=== PATIENT | female | born 1995 | race Caucasian/White ===

== ENCOUNTER 2016-07-31 08:13 | Emergency (ER) | payer SELFPAY ==
[~2016-07-31] VITALS: Ht 162.6 cm; Wt 63.0 kg
[2016-07-31] MEDS ORDERED: IV NORMAL SALINE 1,000ML 1,000 ML IV SCH (08:30)
[2016-07-31] MEDS ORDERED: fentaNYL PF 100 MCG/2 ML VIAL IV PRN (08:30)
--- NOTE | 2016-07-31 08:45 | PHYS DOC ---
Past History Past Medical History: Depression Past Surgical History: No Surgical History Alcohol Use: None Drug Use: None Adult General Chief Complaint Chief Complaint: ABSCESS HPI HPI Patient is a 20 year old female who presents with complaint of rectal pain. Patient states that her symptoms started 2 days ago and have rapidly worsened during that time. Patient states that she has developed a painful area of swelling near her rectum. Patient states that this area is tender to touch and patient is also having pain with bowel movement. Patient denies any fevers. Patient states that she has had history of MRSA abscess of the groin. Patient states that she is currently on her menstrual period. Patient rates the pain on my history taking as 8 out of 10. Patient not currently on any medications. Patient states that she has not taken any medications to help with her symptoms at this time. Review of Systems Review of Systems Constitutional: Denies fever or chills [] Eyes: Denies change in visual acuity, redness, or eye pain [] HENT: Denies nasal congestion or sore throat [] Respiratory: Denies cough or shortness of breath [] Cardiovascular: Denies chest pain or edema [] GI: Rectal pain and swelling, denies abdominal pain, nausea, vomiting, bloody stools or diarrhea [] : Denies dysuria or hematuria [] Musculoskeletal: Denies back pain or joint pain [] Integument: Denies rash or skin lesions [] Neurologic: Denies headache, focal weakness or sensory changes [] Current Medications Current Medications Current Medications Medications (Trade) Dose Ordered Sig/Mehreen Start Time Stop Time Status Last Admin Dose Admin Fentanyl Citrate (Fentanyl 2ml Vial) 50 mcg PRN Q15MIN PRN 07/31/16 08:30 08/01/16 08:29 UNV Ondansetron HCl (Zofran) 4 mg 1X ONCE 07/31/16 08:30 07/31/16 08:31 UNV Sodium Chloride 1,000 ml @ 1,000 mls/hr Q1H 07/31/16 08:30 07/31/16 09:29 UNV Allergies Allergies Allergies Coded Allergies Type Severity Reaction Last Updated Verified No Known Drug Allergies 08/22/15 No Physical Exam Physical Exam Constitutional: Alert, afebrile, appears in moderate discomfort. [] HENT: Normocephalic, atraumatic, bilateral external ears normal, oropharynx moist, no oral exudates, nose normal. [] Cardiovascular: Tachycardia, regular rhythm, no murmur [] Lungs & Thorax: Bilateral breath sounds clear to auscultation [] Abdomen: Bowel sounds normal, soft, no tenderness, no masses, no pulsatile masses. Rectal: 3 cm swollen, tender, fluctuant lesion adjacent to left anterior portion of the anus, tenderness with rectal exam, no gross blood or purulent discharge. [] Skin: Warm, dry, no erythema, no rash. [] Extremities: No tenderness, no cyanosis, no clubbing, ROM intact, no edema. [] Neurologic: Alert and oriented X 3, normal motor function, normal sensory function, no focal deficits noted. [] EKG EKG Not performed [] Radiology/Procedures Radiology/Procedures Not performed [] Course & Med Decision Making Course & Med Decision Making Pertinent Labs and Imaging studies reviewed. (See chart for details) Patient's exam consistent with perirectal abscess. I spoke with Dr. Patel of general surgery at 0835. He recommended that the patient be started on IV antibiotics and be transferred to [facility] for expectant I&D. I spoke with Dr. Leo who accepted care patient in hospital. Patient will be transferred to [facility] urgently by ground EMS. Dragon Disclaimer Dragon Disclaimer This chart was dictated in whole or in part using Voice Recognition software in a busy, high-work load, and often noisy Emergency Department environment. It may contain unintended and wholly unrecognized errors or omissions. Departure Departure: Impression: Primary Impression: Perirectal abscess Additional Impression: Sepsis Disposition: 05 XFER OTHER Condition: STABLE Referrals: RUTHY COBB DO (PCP) Problem Qualifiers Additional Impression: Sepsis Sepsis type: sepsis due to unspecified organism Qualified Codes: A41.9 - Sepsis, unspecified organism JOE DESAI MD July 31, 2016 08:45
[2016-07-31] MEDS ORDERED: ERTAPENEM 1 GM VIAL IV ONE (08:46)
[2016-07-31] MEDS ORDERED: IV NORMAL SALINE 50ML 50 ML ONE (08:46)
[2016-07-31 08:56] LABS: BASO # 0.1 x10^3/uL (0.0-0.2); BASO % 0 % (0-3); EOS # 0.3 x10^3/uL (0.0-0.7); EOS % 2 % (0-3); HEMATOCRIT 38.8 % (36.0-47.0); HEMOGLOBIN 12.9 g/dL (12.0-15.5); LYMPH # 1.8 x10^3/uL (1.0-4.8); LYMPH % 10 % (24-48); MEAN CORPUSCULAR HEMOGLOBIN 28 pg (25-35); MEAN CORPUSCULAR HGB CONC 33 g/dL (31-37); MEAN CORPUSCULAR VOLUME 84 fL (79-100); MONO # 1.5 x10^3/uL (0.0-1.1); MONO % 8 % (0-9); NEUT # 14.4 x10^3uL (1.8-7.7); NEUT % 80 % (31-73); PLATELET COUNT 244 x10^3/uL (140-400); RED CELL DISTRIBUTION WIDTH 13.4 % (11.5-14.5)
[2016-07-31 09:05] LABS: ALBUMIN 3.6 g/dL (3.4-5.0); ALBUMIN/GLOBULIN RATIO 0.9 (1.0-1.7); CREATININE 0.8 mg/dL (0.6-1.0); GFR 89.7; POTASSIUM 4.1 mmol/L (3.5-5.1); TOTAL BILIRUBIN 0.4 mg/dL (0.2-1.0); TOTAL PROTEIN 7.4 g/dL (6.4-8.2)
[2016-07-31] MEDS ORDERED: ERTAPENEM 1 GM in IV NORMAL SALINE 50ML 50 ML IV ONE (09:10)
[2016-07-31] MEDS ORDERED: ONDANSETRON PF 4 MG/2 ML VIAL. IV ONE (09:15)
[2016-07-31 09:35] LABS: % EOS 2 % (0-5); % LYMPHS 9 % (24-48); % MONOS 4 % (0-10); % SEGS 85 % (35-66)
[2016-07-31 09:36] LABS: PLT ESTIMATE ADEQUATE (ADEQUATE)
[2016-07-31 10:33] VITALS: BP 119/69
[2016-07-31 10:50] LABS: CLARITY,URINE CLEAR; COLOR,URINE YELLOW
[2016-07-31 10:51] LABS: BACTERIA,URINE 0 /HPF (0-FEW); BILIRUBIN,URINE NEG (NEG); GLUCOSE,URINE NEG (NEG); NITRITE,URINE NEG (NEG); RBC,URINE RARE /HPF (0-2); SQUAMOUS EPITHELIAL CELL,UR FEW /LPF; UROBILINOGEN,URINE 0.2 mg/dL (0.2 mg/dL); WBC,URINE OCC /HPF (0-4)
== END 2016-07-31 10:45 | disposition short-term general hospital (02) ==
LOC: ER 08:13
DX: A41.9 Sepsis, unspecified organism (principal); K61.1 Rectal abscess; Z86.14 Personal history of Methicillin resistant Staphylococcus aureus infection
CPT/HCPCS: 36415; 80053; 81001; 83605; 85007; 85027; 87040; 87205; 96361; 96365; 96375; 99285; J1335; J2405; J3010; J7030